=== PATIENT | male | born 1940 | race Caucasian/White ===

== ENCOUNTER 2020-04-10 09:07 | Inpatient (IN) ==
[2020-04-10] MEDS ORDERED: 0.9 % SODIUM CHLORIDE 1,000 ML IV ONE (09:16)
[2020-04-10 10:17] LABS: Basophils # (Auto) 0.01 K/mcL (0.00-0.30); Basophils % (Auto) 0.3 % (0.0-2.0); Eosinophils # (Auto) 0.21 K/mcL (0.00-0.70); Eosinophils % (Auto) 5.8 % (0.0-7.0); Granulocytes % (Auto) 68.8 % (38.0-78.0); Hematocrit 26.8 % (40.1-51.0); Hemoglobin 8.9 g/dL (13.7-17.5); Lymphocytes # (Auto) 0.88 K/mcL (1.50-4.80); Lymphocytes % (Auto) 24.5 % (15.5-49.0); Mean Cell Volume 105.5 fL (80.0-100.0); Mean Corpuscular HGB Conc 33.2 g/dL (31.0-36.0); Mean Platelet Volume 11.4 fL (7.4-10.4); Monocytes # (Auto) 0.02 K/mcL (0.10-0.90); Monocytes % (Auto) 0.6 % (1.0-12.0); Platelet Count 117 K/mcL (140-440); RBC 2.54 M/mcL (4.63-6.08); Red Cell Distribution Width 20.4 % (11.5-14.5); WBC 3.6 K/mcL (4.50-11.00)
[2020-04-10 10:36] LABS: ALT/SGPT 36 U/l (0-40); AST/SGOT 36 U/l (0-37); Albumin 3.4 gm/dL (3.2-5.2); Albumin/Globulin Ratio 0.9 (1.0-2.3); Alkaline Phosphatase 84 U/L (39-117); Blood Urea Nitrogen 94 mg/dl (8-23); Calcium 9.1 mg/dl (8.6-10.4); Carbon Dioxide 20 mmol/L (22-30); Chloride 100 mmol/L (96-108); Globulin 3.7 gm/dL (2.2-3.7); Glomerular Filtration Rate 21; Glucose 137 mg/dL (70-105)
[2020-04-10] MEDS ORDERED: 0.9 % SODIUM CHLORIDE 500 ML IV ONE (10:43)
--- NOTE | 2020-04-10 11:29 | XRay Report ---
HISTORY: Cough and hemoptysis FINDINGS: The lungs are clear. No mass or infiltrate are identified. The heart, mediastinum, cesario and pleura are normal. The aorta is tortuous. IMPRESSION: Normal chest. Interpreted and Authenticated by: Marco A Gorman 04/10/20
--- NOTE | 2020-04-10 11:42 | Emergency Department Note ---
HPI General Chief complaint: Bleeding Other Stated complaint: bleeding from mout Time Seen by Provider: 04/10/20 10:12 Source: patient Mode of arrival: ambulatory Limitations: no limitations History of Present Illness HPI Narrative: This 29-year-old male comes with his , Renetta, to the emergency room describing bleeding in his mouth that is gone off and on for around a week. The corners of his mouth hurts and he thinks this is where the bleeding is coming from. There is been no blood in his stool. His primary care provider saw him yesterday, Dr. Gorman, [facility], and with labs that were done yesterday asked him to come to the emergency room with concern regarding kidney failure and infection. Patient admits to feeling weak and tired. He describes having a poor oral intake of fluids for multiple days. He has had poor food intake these past 3 weeks. He is not specifically nauseated or vomiting or diarrhea. No known prior history of anemia or kidney dysfunction. He has bowel movements daily he says none of which have shown any blood or melena or blackness. He denies fever, chills, sweats. He is not on any blood thinners including no aspirin. Related Data Home Medications Medication Instructions Recorded Confirmed bisoprolol-hydrochlorothiazide 5 - 6.25 tab PO DAILY 04/10/20 04/10/20 lisinopril 20 mg PO DAILY 04/10/20 04/10/20 methotrexate sodium 7.5 mg PO WEEKLY 04/10/20 04/10/20 omeprazole 20 mg PO DAILY 04/10/20 04/10/20 simvastatin 40 mg PO DAILY 04/10/20 04/10/20 Allergies Allergy/AdvReac Type Severity Reaction Status Date / Time No Known Drug Allergies Allergy Verified 04/10/20 09:12 Review of Systems ROS ROS Narrative: Denies chest pain Has had some cough for a number of months. He attributes it to his allergies although in the past has not had cough related to allergies. He feels a little bit short of breath during the day with activity No abdominal pain or nausea No dysuria Does feel lightheaded. His blood pressure medication was changed yesterday. Chart review suggest this was his bisoprolol/HCTZ was cut in half. His blood pr essure was a little low then as well. PFSH Narrative Patient History Narrative: Denies a history of DVT or PE. Medical/Surgical/Family History All Active Problems (Updated 04/10/20 @ 15:26 by Josue Leslie DO) Bleeding from mouth (Acute) Anemia (Acute) Acute renal failure (ARF) (Acute) Leukocytopenia (Acute) Thrombocytopenia (Acute) Macrocytosis (Acute) Hypertension, essential (Acute) Weakness (Acute) Rheumatoid arthritis (Acute) Immunosuppressed status (Acute) Social History Smoking Status: Never smoker Exam Narrative Narrative: Narrative: General Limitations: no limitations General appearance: alert, in no apparent distress, malaise (Moderate.) and nontoxic Head Head: atraumatic and normocephalic Eye Eye: Present EOMI ENT ENT: Present other (There is caked dried blood at the corners of his mouth's and he points of these is tender. Inside the oropharynx there is some dryness and there is scattered bloody remnants caked in multiple areas on the hard and soft palate, gums, tongue areas. He is a mouth breather. On the posterior mandible and maxilla on the right side there is a corral firm bed where the posterior molars would usually be. This is slightly tender to touch with the tongue d epressor. There is no obvious red bleeding anywhere that is identifiable.) Neck Neck: Present trachea midline; Absent lymphadenopathy and thyromegaly Respiratory Respiratory: Present normal lung sounds bilaterally; Absent respiratory distress, wheezes, stridor, accessory muscle use and prolonged expiratory phase Cardiovascular Cardiovascular: Present regular rate and normal rhythm; Absent systolic murmur and diastolic murmur Adbominal Abdominal: Present soft; Absent distention, tenderness, guarding, rebound, rigidity, organomegaly and mass Rectal Rectal: Present heme (-) stool (Only a small residue off of the glove was able to be tested as there was no stool in the anal canal or rectal ampulla.) and normal prostate (Not present.); Absent black stool and hemorrhoids Extremities Extremities: Absent pedal edema, pretibial edema and calf tenderness Neurological Neurological: Present alert and oriented X3 Psychiatric Psychiatric: Present flat affect, serious, polite and pleasant; Absent agitated, anxious and poor eye contact Skin Skin: Present warm and dry Course Vital Signs Vital signs: Vital Signs Temperature 98.4 F 04/10/20 09:08 Pulse Rate 92 H 04/10/20 09:08 Respiratory Rate 18 04/10/20 09:08 Blood Pressure 97/68 04/10/20 09:08 Pulse Oximetry (%) 98 04/10/20 09:08 Temperature 98.4 F 04/10/20 09:08 Pulse Rate 75 04/10/20 14:30 Respiratory Rate 16 04/10/20 14:30 Blood Pressure 111/58 04/10/20 14:30 Pulse Oximetry (%) 99 04/10/20 14:30 MDM MDM Narrative Medical decision making narrative: 10:17 AM - mouth bleeding of uncertain origin. Will do basic labs as well as coags. We will have him rinse to try to reexamine. Because of some chronic cough will do chest x-ray. We will do orthostatic blood pressures. Will obtain old records. 11:41 AM - sinus rhythm on EKG without ACS. 11:43 AM - chest x-ray is normal chest. 12:00 noon estimated - previous chart review from [facility] includes old creatinine of 1.3 on 12/08/2017. White count then was 7.8. Hemoglobin and hematocrit 13.5 and 40.4. Labs from yesterday include sodium 139, potassium 5.6, chloride 101, CO2 24.6, anion gap 18.4, glucose 137, calcium 9.4, BUN 98, creatinine 3.43. Albumin and total protein were 3.8 and 7.6. Liver function tests normal. CBC from yesterday involved a white count of 2.7, hemoglobin 8.8, hematocrit 25.9. MCV is elevated at 104.4, platelet count 116. CRP elevated at 23.9. TSH 1.484. FT4 0.93 which is in the normal range. Chart note includes a 35 pound weight loss over the last year. This is from Dr. Gorman from yesterday. Impression included dysphasia with some abdominal pain . CAT scan of the abdomen was ordered. His methotrexate and meloxicam were discontinued and omeprazole increased to twice daily. His previous methotrexate dose was 2.5 mg with 5 tablets once a week. Patient's blood pressure was low and it was recommended that he discontinue his lisinopril and decrease bisoprolol previous dose to 1/2 tablet daily. His recent dose probably bisoprolol/hydrochlorothiazide 5-6.25. Previous lisinopril was 10 mg once daily. 1:23 PM - repeat hemoglobin comes down to 7.2. This is after 1500 cc of normal saline. It was 8.8. Patient denies any hematochezia or melena. He has daily bowel movements. Type and cross for 2 units ordered. 1:38 PM - I spoke with Dr. 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 He will do some additional follow- up/investigation. He is willing to follow patient in consult. Call out to gege castro. 2:18 PM - I briefly discussed with Dr. Ornelas, hospitalist who requested a consultation with hematology which I requested. Concern regarding chart review that shows dysphagia and with his weight loss and pancytopenia could there be a malignancy. He again recommends he Monck consult. 2:46 PM - I spoke with Dr. Tosin Hernandez, salesperson floor coverings oncologist to believes that his decrease in his H&H is certainly likely due to delusional effect that he is very dry considering his BUN and creatinine etc. Methotrexate certainly could cause pancytopenia. She believes it would be reasonable to monitor and to replace fluids as well as blood at this point in time. A reticulocyte count could be entertained as a means to measure how well his bone marrow is responding and if is responding well could be an indicator or suggestion of acute blood loss. 3:13 PM - I spoke with Dr. Ornelas, again who is agreeable and will be able to admit patient under his services. The CRP from yesterday was mentioned, 23.0, but patient has had rheumatoid arthritis. His lactic acid today was unremarkabl e. He will be admitted and his packed red blood cells will be infused when they arrive. Lab Data Result diagrams: 04/10/20 12:25 04/10/20 09:16 Labs: Lab Results 04/10/20 04/10/20 04/10/20 Range/Units 09:16 09:16 09:16 WBC 3.6 L (4.50-11.00) K/mcL RBC 2.54 L (4.63-6.08) M/mcL Hgb 8.9 L (13.7-17.5) g/dL Hct 26.8 L (40.1-51.0) % MCV 105.5 H (80.0-100.0) fL MCH 35.0 H (26.0-34.0) pg MCHC 33.2 (31.0-36.0) g/dL RDW 20.4 H (11.5-14.5) % Plt Count 117 L (140-440) K/mcL MPV 11.4 H (7.4-10.4) fL Gran % 68.8 (38.0-78.0) % Lymph % (Auto) 24.5 (15.5-49.0) % Luna % (Auto) 0.6 L (1.0-12.0) % Eos % (Auto) 5.8 (0.0-7.0) % Baso % (Auto) 0.3 (0.0-2.0) % Gran # 2.47 (1.80-8.00) K/mcL Lymph # (Auto) 0.88 L (1.50-4.80) K/mcL Luna # (Auto) 0.02 L (0.10-0.90) K/mcL Eos # (Auto) 0.21 (0.00-0.70) K/mcL Baso # (Auto) 0.01 (0.00-0.30) K/mcL Total Counted Seg Neutrophils % (38-78) % Band Neutrophils % (0-10) % Lymphocytes % (15-49) % Eosinophils % (Manual) (0-7) % Platelet Estimate (NORMAL) RBC Morphology (NORMAL) Anisocytosis (NONE SEEN) Macrocytosis (NONE SEEN) Smear Path Review Absolute Retic (0.03-0.11) M/mcL Percent Retic (0.5-1.5) % PT (11.9-14.5) sec INR (0.9-1.1) APTT (20-37) sec VBG Lactic Acid 1.9 (0.5-2.0) mmol/L Sodium 139 (133-145) mmol/L Potassium 4.6 (3.3-5.1) mmol/L Chloride 100 (96-108) mmol/L Carbon Dioxide 20 L (22-30) mmol/L Anion Gap 19.0 H (8-16) BUN 94 H (8-23) mg/dl Creatinine 2.7 H (0.7-1.2) mg/dl GFR Calculation 21 Glucose 137 H (70-105) mg/dL Uric Acid (2.5-8.0) mg/dL Calcium 9.1 (8.6-10.4) mg/dl Phosphorus (2.7-4.5) mg/dL Total Bilirubin 1.0 (0.0-1.0) mg/dL AST 36 (0-37) U/l ALT 36 (0-40) U/l Alkaline Phosphatase 84 (39-117) U/L Troponin T (0-0.03) ng/ml Total Protein 7.1 (5.9-8.4) gm/dL Albumin 3.4 (3.2-5.2) gm/dL Globulin 3.7 (2.2-3.7) gm/dL Albumin/Globulin Ratio 0.9 L (1.0-2.3) 04/10/20 04/10/20 04/10/20 Range/Units 09:16 09:16 09:16 WBC (4.50-11.00) K/mcL RBC (4.63-6.08) M/mcL Hgb (13.7-17.5) g/dL Hct (40.1-51.0) % MCV (80.0-100.0) fL MCH (26.0-34.0) pg MCHC (31.0-36.0) g/dL RDW (11.5-14.5) % Plt Count (140-440) K/mcL MPV (7.4-10.4) fL Gran % (38.0-78.0) % Lymph % (Auto) (15.5-49.0) % Luna % (Auto) (1.0-12.0) % Eos % (Auto) (0.0-7.0) % Baso % (Auto) (0.0-2.0) % Gran # (1.80-8.00) K/mcL Lymph # (Auto) (1.50-4.80) K/mcL Luna # (Auto) (0.10-0.90) K/mcL Eos # (Auto) (0.00-0.70) K/mcL Baso # (Auto) (0.00-0.30) K/mcL Total Counted Seg Neutrophils % (38-78) % Band Neutrophils % (0-10) % Lymphocytes % (15-49) % Eosinophils % (Manual) (0-7) % Platelet Estimate (NORMAL) RBC Morphology (NORMAL) Anisocytosis (NONE SEEN) Macrocytosis (NONE SEEN) Smear Path Review Absolute Retic (0.03-0.11) M/mcL Percent Retic (0.5-1.5) % PT 14.0 (11.9-14.5) sec INR 1.0 (0.9-1.1) APTT 38 H (20-37) sec VBG Lactic Acid (0.5-2.0) mmol/L Sodium (133-145) mmol/L Potassium (3.3-5.1) mmol/L Chloride (96-108) mmol/L Carbon Dioxide (22-30) mmol/L Anion Gap (8-16) BUN (8-23) mg/dl Creatinine (0.7-1.2) mg/dl GFR Calculation Glucose (70-105) mg/dL Uric Acid (2.5-8.0) mg/dL Calcium (8.6-10.4) mg/dl Phosphorus (2.7-4.5) mg/dL Total Bilirubin (0.0-1.0) mg/dL AST (0-37) U/l ALT (0-40) U/l Alkaline Phosphatase (39-117) U/L Troponin T < 0.01 (0-0.03) ng/ml Total Protein (5.9-8.4) gm/dL Albumin (3.2-5.2) gm/dL Globulin (2.2-3.7) gm/dL Albumin/Globulin Ratio (1.0-2.3) 04/10/20 04/10/20 04/10/20 Range/Units 09:16 12:25 12:25 WBC 1.9 L (4.50-11.00) K/mcL RBC 2.04 L (4.63-6.08) M/mcL Hgb 7.2 L (13.7-17.5) g/dL Hct 21.6 L (40.1-51.0) % MCV 105.9 H (80.0-100.0) fL MCH 35.3 H (26.0-34.0) pg MCHC 33.3 (31.0-36.0) g/dL RDW 20.4 H (11.5-14.5) % Plt Count 81 L (140-440) K/mcL MPV 11.1 H (7.4-10.4) fL Gran % 82.8 H (38.0-78.0) % Lymph % (Auto) 14.1 L (15.5-49.0) % Luna % (Auto) 0.5 L (1.0-12.0) % Eos % (Auto) 2.6 (0.0-7.0) % Baso % (Auto) 0 (0.0-2.0) % Gran # 1.58 L (1.80-8.00) K/mcL Lymph # (Auto) 0.27 L (1.50-4.80) K/mcL Luna # (Auto) 0.01 L (0.10-0.90) K/mcL Eos # (Auto) 0.05 (0.00-0.70) K/mcL Baso # (Auto) 0 (0.00-0.30) K/mcL Total Counted Seg Neutrophils % (38-78) % Band Neutrophils % (0-10) % Lymphocytes % (15-49) % Eosinophils % (Manual) (0-7) % Platelet Estimate (NORMAL) RBC Morphology (NORMAL) Anisocytosis (NONE SEEN) Macrocytosis (NONE SEEN) Smear Path Review Absolute Retic (0.03-0.11) M/mcL Percent Retic (0.5-1.5) % PT (11.9-14.5) sec INR (0.9-1.1) APTT (20-37) sec VBG Lactic Acid (0.5-2.0) mmol/L Sodium (133-145) mmol/L Potassium (3.3-5.1) mmol/L Chloride (96-108) mmol/L Carbon Dioxide (22-30) mmol/L Anion Gap (8-16) BUN (8-23) mg/dl Creatinine (0.7-1.2) mg/dl GFR Calculation Glucose (70-105) mg/dL Uric Acid 10.5 H (2.5-8.0) mg/dL Calcium (8.6-10.4) mg/dl Phosphorus 4.5 (2.7-4.5) mg/dL Total Bilirubin (0.0-1.0) mg/dL AST (0-37) U/l ALT (0-40) U/l Alkaline Phosphatase (39-117) U/L Troponin T (0-0.03) ng/ml Total Protein (5.9-8.4) gm/dL Albumin (3.2-5.2) gm/dL Globulin (2.2-3.7) gm/dL Albumin/Globulin Ratio (1.0-2.3) 04/10/20 Range/Units 12:25 WBC (4.50-11.00) K/mcL RBC (4.63-6.08) M/mcL Hgb (13.7-17.5) g/dL Hct (40.1-51.0) % MCV (80.0-100.0) fL MCH (26.0-34.0) pg MCHC (31.0-36.0) g/dL RDW (11.5-14.5) % Plt Count (140-440) K/mcL MPV (7.4-10.4) fL Gran % (38.0-78.0) % Lymph % (Auto) (15.5-49.0) % Luna % (Auto) (1.0-12.0) % Eos % (Auto) (0.0-7.0) % Baso % (Auto) (0.0-2.0) % Gran # (1.80-8.00) K/mcL Lymph # (Auto) (1.50-4.80) K/mcL Luna # (Auto) (0.10-0.90) K/mcL Eos # (Auto) (0.00-0.70) K/mcL Baso # (Auto) (0.00-0.30) K/mcL Total Counted 100 Seg Neutrophils % 68 (38-78) % Band Neutrophils % 2 (0-10) % Lymphocytes % 28 (15-49) % Eosinophils % (Manual) 2 (0-7) % Platelet Estimate Decreased A (NORMAL) RBC Morphology Abnorm A (NORMAL) Anisocytosis 2+ A (NONE SEEN) Macrocytosis 1+ A (NONE SEEN) Smear Path Review Absolute Retic 0.01 L (0.03-0.11) M/mcL Percent Retic 0.36 L (0.5-1.5) % PT (11.9-14.5) sec INR (0.9-1.1) APTT (20-37) sec VBG Lactic Acid (0.5-2.0) mmol/L Sodium (133-145) mmol/L Potassium (3.3-5.1) mmol/L Chloride (96-108) mmol/L Carbon Dioxide (22-30) mmol/L Anion Gap (8-16) BUN (8-23) mg/dl Creatinine (0.7-1.2) mg/dl GFR Calculation Glucose (70-105) mg/dL Uric Acid (2.5-8.0) mg/dL Calcium (8.6-10.4) mg/dl Phosphorus (2.7-4.5) mg/dL Total Bilirubin (0.0-1.0) mg/dL AST (0-37) U/l ALT (0-40) U/l Alkaline Phosphatase (39-117) U/L Troponin T (0-0.03) ng/ml Total Protein (5.9-8.4) gm/dL Albumin (3.2-5.2) gm/dL Globulin (2.2-3.7) gm/dL Albumin/Globulin Ratio (1.0-2.3) Discharge Plan Patient/Caregiver Discharge Instructions Pt seen by DISH UP PERSON/PA only: No Clinical Impression: Bleeding from mouth, Thrombocytopenia, Macrocytosis, Hypertension, essential, Weakness, Immunosuppressed status Anemia Qualifiers: Anemia type: unspecified type Qualified Code(s): D64.9 - Anemia, unspecified Acute renal failure (ARF) Qualifiers: Acute renal failure type: unspecified Qualified Code(s): N17.9 - Acute kidney failure, unspecified Leukocytopenia Qualifiers: Leukopenia type: unspecified Qualified Code(s): D72.819 - Decreased white blood cell count, unspecified Rheumatoid arthritis Qualifiers: Rheumatoid arthritis location: unspecified site Rheumatoid factor presence: unspecified presence Qualified Code(s): M06.9 - Rheumatoid arthritis, unspecified Patient Disposition: Xfer As Inpt ([facility]) Follow up with: Saturnino Dugan MD [Primary Care Provider] - Prescriptions: No Action lisinopril 20 mg tablet 20 mg PO DAILY RF: 0 bisoprolol-hydrochlorothiazide 5-6.25 mg tablet 5 - 6.25 tab PO DAILY RF: 0 simvastatin 40 mg tablet 40 mg PO DAILY RF: 0 methotrexate sodium 2.5 mg tablet 7.5 mg PO WEEKLY RF: 0 omeprazole 20 mg capsule,delayed release(DR/EC) 20 mg PO DAILY RF: 0
[2020-04-10 13:11] LABS: Basophils # (Auto) 0 K/mcL (0.00-0.30); Basophils % (Auto) 0 % (0.0-2.0); Eosinophils # (Auto) 0.05 K/mcL (0.00-0.70); Eosinophils % (Auto) 2.6 % (0.0-7.0); Granulocytes % (Auto) 82.8 % (38.0-78.0); Hematocrit 21.6 % (40.1-51.0); Hemoglobin 7.2 g/dL (13.7-17.5); Lymphocytes # (Auto) 0.27 K/mcL (1.50-4.80); Lymphocytes % (Auto) 14.1 % (15.5-49.0); Mean Cell Volume 105.9 fL (80.0-100.0); Mean Corpuscular HGB Conc 33.3 g/dL (31.0-36.0); Mean Platelet Volume 11.1 fL (7.4-10.4); Monocytes # (Auto) 0.01 K/mcL (0.10-0.90); Monocytes % (Auto) 0.5 % (1.0-12.0); Platelet Count 81 K/mcL (140-440); RBC 2.04 M/mcL (4.63-6.08); Red Cell Distribution Width 20.4 % (11.5-14.5); WBC 1.9 K/mcL (4.50-11.00)
[2020-04-10] MEDS ORDERED: 0.9 % SODIUM CHLORIDE 250 ML IV SCH ×2 (13:30→15:30)
[2020-04-10 14:46] LABS: Retic Absolute 0.01 M/mcL (0.03-0.11)
[2020-04-10 14:51] LABS: Anisocytosis 2+ (NONE SEEN); Band Neutrophils % 2 % (0-10); Eosinophils % (Manual) 2 % (0-7); Lymphocytes % 28 % (15-49); Macrocytosis 1+ (NONE SEEN); Platelet Estimate DECREASED (NORMAL); RBC Morphology ABNORM (NORMAL); Segmented Neutrophils % 68 % (38-78)
[2020-04-10 14:51] LABS: Phosphorous 4.5 mg/dL (2.7-4.5); Uric Acid 10.5 mg/dL (2.5-8.0)
--- NOTE | 2020-04-10 15:53 | Internal Med History&Physical ---
HPI History of Present Illness Patient information: Note initiated : 04/10/20 at 3:43 pm Service Date, if different from initiated Date: [] Patient: Darren Neal a 79 y/o M admitted on for Bleeding From Mouth. Chief Complaint: [] History of present illness: Mr. Neal is a 79 year old M Does the ED at the direction of his PCP after abnormal labs returned. Patient has history of remote arthritis hypertension chronic kidney disease stage III. Patient was started on methotrexate about 6 months ago. He was recently seen by his PCP and his blood pressure medications and diuretics were held as well as methotrexate and NSAIDs. Patient states about past 6 months he is not been feeling well but especially the past 3 to 4 weeks he has had poor appetite and poor sleep. Says he does have some problem with his dentures rubbing against his gums and did cause some bleeding lately, he says the first time this happened was about a year ago. His says he does not drink enough fluid and she has been trying encourage him all summer to drink more fluid. He states he urinates okay. He denies any fevers chills chest pain abdominal pain. Does have occasional diarrhea which is normal for him. He denies dysphagia. In the ED he is shown to be pancytopenic as well as have an acute on chronic kidney injury. He also has some out patient laboratory done recently which showed a normal TSH and T4 as well as a normal B12 and folate level. TIBC was low and ferritin was high. Case was also cussed with Dr. Bowling, neurologist. And case was also discussed with Dr. Aguilar, ballistics expert forensic, who felt likely culprit was methotrexate. He was Hemoccult negative in the ED and does not report any GI bleeding. Review of Systems: Positive as above. Denies headache/fever/chills/nausea/vomiting/chest or abdominal pain/cough/dyspnea. Remaining 10 point review of system reviewed negative PFSH PFSH Social History (Updated 04/10/20 @ 15:48 by Lew Ornelas DO) smoking status: Never smoker additional history: Past medical history: Rheumatoid arthritis follows with Dr. Gorman not seeing a eyelet maker at this time Hypertension/hyperlipidemia Chronic kidney disease stage III Past surgical history: Prostatectomy and bilateral total knee arthroplasty Family: Father had hypertension Social history: Patient denies tobacco he has a drink per each night alcohol Denies using a walker or cane Lives at home with his MEDS/ALLERGIES Home Medications and Allergies Home Medications Medication Instructions Recorded Confirmed Type bisoprolol-hydrochlorothiazide 5 - 6.25 tab PO DAILY 04/10/20 04/10/20 History lisinopril 20 mg PO DAILY 04/10/20 04/10/20 History methotrexate sodium 7.5 mg PO WEEKLY 04/10/20 04/10/20 History omeprazole 20 mg PO DAILY 04/10/20 04/10/20 History simvastatin 40 mg PO DAILY 04/10/20 04/10/20 History Allergies Allergy/AdvReac Type Severity Reaction Status Date / Time No Known Drug Allergies Allergy Verified 04/10/20 09:12 EXAM Constitutional Vitals: Temp Pulse Resp BP Pulse Ox 98.4 F 88 19 118/64 99 04/10/20 09:08 04/10/20 15:31 04/10/20 15:31 04/10/20 15:31 04/10/20 15:31 Exam: General: Alert, Awake, No acute Distress Eyes/N/T: EOMI, PERRL, dry MM Head/Neck: neck supple, normocephalic atraumatic CV: RRR, No murmurs, normal s1/s2 Pulm: Clear b/l, no wheezing/rhonchi/rales Abd: soft, nontender, +BS x4 Ext: no clubbing/cyanosis/edema Neuro: Alert, no focal deficits, moves all extremities, CN 2-12 grossly intact, symmetrical strength b/l upper/lower, sensations intact b/l upper/lower Skin: warm/dry DATA Data Completed and Pending Labs on day of discharge: Labs from last 24 hours 04/10/20 04/10/20 04/10/20 12:25 12:25 12:25 WBC 1.9 L RBC 2.04 L Hgb 7.2 L Hct 21.6 L MCV 105.9 H MCH 35.3 H MCHC 33.3 RDW 20.4 H Plt Count 81 L MPV 11.1 H Gran % 82.8 H Lymph % (Auto) 14.1 L Knott % (Auto) 0.5 L Eos % (Auto) 2.6 Baso % (Auto) 0 Gran # 1.58 L Lymph # (Auto) 0.27 L Knott # (Auto) 0.01 L Eos # (Auto) 0.05 Baso # (Auto) 0 Total Counted 100 Seg Neutrophils % 68 Band Neutrophils % 2 Lymphocytes % 28 Eosinophils % (Manual) 2 Platelet Estimate Decreased A RBC Morphology Abnorm A Anisocytosis 2+ A Macrocytosis 1+ A Smear Path Review Absolute Retic 0.01 L Percent Retic 0.36 L PT INR APTT VBG Lactic Acid Sodium Potassium Chloride Carbon Dioxide Anion Gap BUN Creatinine GFR Calculation Glucose Uric Acid Calcium Phosphorus Total Bilirubin AST ALT Alkaline Phosphatase Troponin T Total Protein Albumin Globulin Albumin/Globulin Ratio 04/10/20 04/10/20 04/10/20 09:16 09:16 09:16 WBC RBC Hgb Hct MCV MCH MCHC RDW Plt Count MPV Gran % Lymph % (Auto) Knott % (Auto) Eos % (Auto) Baso % (Auto) Gran # Lymph # (Auto) Knott # (Auto) Eos # (Auto) Baso # (Auto) Total Counted Seg Neutrophils % Band Neutrophils % Lymphocytes % Eosinophils % (Manual) Platelet Estimate RBC Morphology Anisocytosis Macrocytosis Smear Path Review Absolute Retic Percent Retic PT INR APTT 38 H VBG Lactic Acid Sodium Potassium Chloride Carbon Dioxide Anion Gap BUN Creatinine GFR Calculation Glucose Uric Acid 10.5 H Calcium Phosphorus 4.5 Total Bilirubin AST ALT Alkaline Phosphatase Troponin T < 0.01 Total Protein Albumin Globulin Albumin/Globulin Ratio 04/10/20 04/10/20 04/10/20 09:16 09:16 09:16 WBC RBC Hgb Hct MCV MCH MCHC RDW Plt Count MPV Gran % Lymph % (Auto) Knott % (Auto) Eos % (Auto) Baso % (Auto) Gran # Lymph # (Auto) Knott # (Auto) Eos # (Auto) Baso # (Auto) Total Counted Seg Neutrophils % Band Neutrophils % Lymphocytes % Eosinophils % (Manual) Platelet Estimate RBC Morphology Anisocytosis Macrocytosis Smear Path Review Absolute Retic Percent Retic PT 14.0 INR 1.0 APTT VBG Lactic Acid 1.9 Sodium 139 Potassium 4.6 Chloride 100 Carbon Dioxide 20 L Anion Gap 19.0 H BUN 94 H Creatinine 2.7 H GFR Calculation 21 Glucose 137 H Uric Acid Calcium 9.1 Phosphorus Total Bilirubin 1.0 AST 36 ALT 36 Alkaline Phosphatase 84 Troponin T Total Protein 7.1 Albumin 3.4 Globulin 3.7 Albumin/Globulin Ratio 0.9 L 04/10/20 09:16 WBC 3.6 L RBC 2.54 L Hgb 8.9 L Hct 26.8 L MCV 105.5 H MCH 35.0 H MCHC 33.2 RDW 20.4 H Plt Count 117 L MPV 11.4 H Gran % 68.8 Lymph % (Auto) 24.5 Knott % (Auto) 0.6 L Eos % (Auto) 5.8 Baso % (Auto) 0.3 Gran # 2.47 Lymph # (Auto) 0.88 L Knott # (Auto) 0.02 L Eos # (Auto) 0.21 Baso # (Auto) 0.01 Total Counted Seg Neutrophils % Band Neutrophils % Lymphocytes % Eosinophils % (Manual) Platelet Estimate RBC Morphology Anisocytosis Macrocytosis Smear Path Review Absolute Retic Percent Retic PT INR APTT VBG Lactic Acid Sodium Potassium Chloride Carbon Dioxide Anion Gap BUN Creatinine GFR Calculation Glucose Uric Acid Calcium Phosphorus Total Bilirubin AST ALT Alkaline Phosphatase Troponin T Total Protein Albumin Globulin Albumin/Globulin Ratio A/P Narrative A/P Narrative: A: *YURIY on CKD III: 2/2 poor oral intake/NSAIDs/BONNY inhibitor/HCTZ *panCytopenia: Likely 2/2 methotrexate -Macrocytic anemia with normal B12 and folate, 2/2 likely methotrexate -Thrombocytopenia 79 -Mild neutropenia -No blasts or immature cells on the peripheral smear *Rheumatoid arthritis: Started on the methotrexate 6 months ago, now DC'd *HTN: Blood pressure medications recently stopped outpatient given decreased blood pressure readings *HLD: On statin *Generalized weakness: P: -IVF -PRBC transfusion -Nephro consult -monitor UOP -cont BB at lower dose -d/c NSAIDS/ACEI/MTX/HCTZ -Follow-up with PCP/eyelet maker for alternative rheumatologic's -pt/ot -ppx: SCD, may start chemical in AM depending on CBC DNR Time Spent With Patient Time: Total time spent is greater than 50% in coordination of care (as documented) at patient's floor/unit and/or counseling patient:
[2020-04-10] MEDS ORDERED: ACETAMINOPHEN 325 MG TABLET PO PRN (16:49)
[2020-04-10] MEDS ORDERED: IPRATROPIUM/ALBUTEROL 3 ML AMPUL.NEB NEB PRN (16:49)
[2020-04-10] MEDS ORDERED: POLYETHYLENE GLYCOL 3350 17 GM PACKET PO PRN (16:49)
[2020-04-10] MEDS ORDERED: MAGNESIUM SULFATE 2 GM/50 ML BAG IV PRN (16:49)
[2020-04-10] MEDS ORDERED: POTASSIUM CHLORIDE 20 MEQ TABLET PO PRN ×2 (16:49)
[2020-04-10] MEDS ORDERED: ONDANSETRON 4 MG/2 ML VIAL IV PRN (16:49)
[2020-04-10] MEDS ORDERED: POTASSIUM CHLORIDE 40 MEQ in DEXTROSE 5% IN WATER 500 ML IV PRN (16:49)
--- NOTE | 2020-04-10 17:00 | Nephrology Consult Note ---
HPI Data of Consult Primary Care Provider: Saturnino Dugan Consult Narrative Patient Information: Note initiated : 04/10/20 at 4:59 pm Service Date, if different from initiated Date: [] Patient: Darren Neal 79 y/o M admitted on 04/10/20 for Bleeding From Mouth. Chief Complaint: [ARF] Patient is a 89-year-old gentleman with history of hypertension (primary/thiazide) and lisinopril as well as some sort of inflammatory arthritis on methotrexate 7.5 mg a week who presents with. General oropharyngeal bleeding and initial ED lab testing was found to have pancytopenia as well as noted elevation in his BUN and creatinine. Laboratory Tests 04/10/20 04/10/20 04/10/20 09:16 09:16 09:16 WBC 3.6 L Hgb 8.9 L Hct 26.8 L MCV 105.5 H Plt Count 117 L Eos % (Auto) 5.8 VBG Lactic Acid 1.9 Sodium 139 Potassium 4.6 Chloride 100 Carbon Dioxide 20 L Anion Gap 19.0 H BUN 94 H Creatinine 2.7 H GFR Calculation 21 Glucose 137 H Uric Acid Calcium 9.1 Phosphorus AST 36 ALT 36 Alkaline Phosphatase 84 Albumin 3.4 Globulin 3.7 04/10/20 04/10/20 09:16 12:25 WBC 1.9 L Hgb Hct MCV Plt Count 81 L Eos % (Auto) VBG Lactic Acid Sodium Potassium Chloride Carbon Dioxide Anion Gap BUN Creatinine GFR Calculation Glucose Uric Acid 10.5 H Calcium Phosphorus 4.5 AST ALT Alkaline Phosphatase Albumin Globulin I'm told his baseline creatinine in November 2017 was 1.3 mg/dl. There is no urinalysis. CXR is negative. Poor po intake. In my mind, prerenal azotemia due to thiazide/ACEi and dehydration is a strong possibility, followed by a crystalopathy from MTX toxicity (unlikely at this dose), and acute GN (pauci immune given age and rheumatoid related if that's his primary reason for MTx)) of a myeloma or light chain process given his age and pancytopenia. Diagnostic studies will be ordered. More thoughts follow results of lab testing Stop HXTZ and Lisinopril. Continue hydration. cc:: CC: Lew Ornelas Constitutional Constitutional: Present as per HPI, fatigue, lethargy and weakness EENT Eyes: Present as per HPI Nose, mouth and throat: Present dry mouth and mouth lesions; Absent epistaxis Cardiovascular Cardiovascular: Present as per HPI and rapid heart rate Respiratory Respiratory: Present dyspnea on exertion Gastrointestinal Gastrointestinal: Absent coffee ground emesis, hematemesis, hematochezia and melena Genitourinary Additional comments: No hematuria or foamy urine Musculoskeletal Musculoskeletal: Present arthralgias and atrophy Integumentary Integumentary: Present unusual bruising Neurological Neurological: Present confusion and memory loss Psychiatric Psychiatric: Present as per HPI and abnormal sleep pattern Endocrine Endocrine: Present fatigue Hematologic/Lymphatic Hematologic/Lymphatic: Present easy bleeding and easy bruising Allergic/Immunologic Allergic/Immunologic: Present as per HPI PFSH PFSH Social History (Updated 04/10/20 @ 15:48 by Lew Ornelas DO) smoking status: Never smoker additional history: Past medical history: Rheumatoid arthritis follows with Dr. Gorman not seeing a operations administrator at this time Hypertension/hyperlipidemia Chronic kidney disease stage III Past surgical history: Prostatectomy and bilateral total knee arthroplasty Family: Father had hypertension Social history: Patient denies tobacco he has a drink per each night alcohol Denies using a walker or cane Lives at home with his MEDS/ALLERGIES Home Medications and Allergies Home Medications Medication Instructions Recorded Confirmed Type bisoprolol-hydrochlorothiazide 5 - 6.25 tab PO DAILY 04/10/20 04/10/20 History lisinopril 20 mg PO DAILY 04/10/20 04/10/20 History methotrexate sodium 7.5 mg PO WEEKLY 04/10/20 04/10/20 History omeprazole 20 mg PO DAILY 04/10/20 04/10/20 History simvastatin 40 mg PO DAILY 04/10/20 04/10/20 History Allergies Allergy/AdvReac Type Severity Reaction Status Date / Time No Known Drug Allergies Allergy Verified 04/10/20 09:12 Physical Examination Vital Signs Vital signs: Temp Pulse Resp BP Pulse Ox 36.9 C 76 19 115/61 99 04/10/20 09:08 04/10/20 16:01 04/10/20 15:31 04/10/20 16:01 04/10/20 16:01 General Appearance General appearance: appears started age and frail EENT EENT: ATNC, PERRL, mucous membranes dry, vision intact and hearing diminished Neck Neck: no JVD, no carotid bruit and supple Respiratory Respiratory: kyphosis and clear Cardiovascular Cardiology: mid-systolic murmur, no rub, no gallops, no edema, regular rhythm, normal S1 and normal S2 Gastrointestinal Gastrointestinal: normoactive bowel sounds, no tenderness, no guarding and no masses Integumentary Integumentary: no rash and warm and dry Neurologic Neurologic: no focal deficit, no asterixis and CN 3-12 intact Musculoskeletal Musculoskeletal: no deformities and no clubbing Psychiatric Psychiatric: mood/affect appropriate Results Lab Results Result Diagrams: 04/10/20 12:25 04/10/20 09:16 Lab results: Most recent lab results Calcium 9.1 mg/dl (8.6-10.4) 04/10/20 09:16 Phosphorus 4.5 mg/dL (2.7-4.5) 04/10/20 09:16 A/P Assessment and plan (1) Acute renal failure (ARF): Status: Acute Comment: Baseline SCr 1.3 in 2018 Qualifiers: Acute renal failure type: unspecified Qualified Code(s): N17.9 - Acute kidney failure, unspecified (2) Acquired pancytopenia: Status: Acute Comment: Suspect MTX induced and folate deficient Narrative A/P Narrative: 1. Given the high protein/creatinine ratio, I suspect GI bleeding (high protein meal) and ACEi leading to extreme pre-renal condition. FeNa U/A Protein/Creatinine ratio (urine) Stop lisinopril Volume expand with pRBCs +/1 crystaloid Serial RFP Age directed labs base on possibility of myeloma or pauci immune GN 2. Pancytopenia in a patient on MTX Likely poor folate intake (diet and/or lack of replacement) MCV is c/w this etiology Start replacing folate Could be myelodysplastic Time Spent With Patient Time: Total time spent is greater than 50% in coordination of care (as documented) at patient's floor/unit and/or counseling patient:
[2020-04-10 18:30] LABS: Retic Absolute 0.01 M/mcL (0.03-0.11)
[2020-04-10 18:50] LABS: Iron 73 mcg/dl (61-157); Lactate Dehydrogenase 212 U/L (94-250); TIBC Calculation 170 ug/dl (228-428); Transferrin % Saturation 42 % (20-50)
[2020-04-10] MEDS: FOLIC ACID 1 MG TABLET PO SCH (20:14)
[2020-04-10 22:31] LABS: Appearance,Urine HAZY; Bilirubin,Urine NEG (NEG); Color,Urine YELLOW; Culture Indicated,Urine NO; Glucose,Urine (UA) 50 mg/dL (NEG); Ketones,Urine NEG (NEG); Leukocyte Esterase,Urine NEG /uL (NEG); Nitrate,Urine NEG (NEG); Protein,Urine NEG (NEG); Specific Gravity,Urine 1.016 (1.000-1.035); Urine Blood NEG mg/dL (<0.03); Urobilinogen,Urine NEG (NEG)
[2020-04-10 22:48] LABS: Sodium, Urine Random 73 mmol/L
[2020-04-10 22:54] LABS: Creatinine, Spot Urine 65.6 mg/dl; Pro:Crea Ratio 0.21 mg:mg
[2020-04-10] MEDS: 0.9 % SODIUM CHLORIDE 10 ML SYRINGE IV SCH (23:53)
[2020-04-11] MEDS: 0.9 % SODIUM CHLORIDE 10 ML SYRINGE IV SCH ×3 (05:38→21:57)
--- NOTE | 2020-04-11 07:14 | Internal Med Progress Note ---
SUBJECTIVE Subjective Patient information: Note initiated : 04/11/20 at 7:10 am Service Date, if different from initiated Date: [] Patient: Darren Neal 79 y/o M admitted on 04/10/20 for Bleeding From Mouth. Chief Complaint: [] Interval history: Mr. Neal is a 79 year old M Does the ED at the direction of his PCP after abnormal labs returned. Patient has history of remote arthritis hypertension chronic kidney disease stage III. Patient was started on methotrexate about 6 months ago. He was recently seen by his PCP and his blood pressure medications and diuretics were held as well as methotrexate and NSAIDs. Patient states about past 6 months he is not been feeling well but especially the past 3 to 4 weeks he has had poor appetite and poor sleep. Says he does have some problem with his dentures rubbing against his gums and did cause some bleeding lately, he says the first time this happened was about a year ago. His says he does not drink enough fluid and she has been trying encourage him all summer to drink more fluid. He states he urinates okay. He denies any fevers chills chest pain abdominal pain. Does have occasional diarrhea which is normal for him. He denies dysphagia. In the ED he is shown to be pancytopenic as well as have an acute on chronic kidney injury. He also has some out patient laboratory done recently which showed a normal TSH and T4 as well as a normal B12 and folate level. TIBC was low and ferritin was high. Case was also cussed with Dr. Bowling, neurologist. And case was also discussed with Dr. Aguilar, salesperson automobiles, who felt likely culprit was methotrexate. He was Hemoccult negative in the ED and does not report any GI bleeding. 04/11 For sleep but otherwise no new complaints. No overnight events. Received several units of blood yesterday with good response. White blood cell count s lightly improved. Platelets mildly decreased. Red blood cells slightly increased. Creatinine decreased. Constitutional Vitals: Vital Signs Temp Pulse Resp BP Pulse Ox 98.6 F 88 22 127/69 97 04/11/20 03:27 04/11/20 03:27 04/11/20 03:27 04/11/20 03:27 04/11/20 03:27 Period Temp Pulse Resp BP Sys/Gomez Pulse Ox Last 24 Hr 97.8 F-100.3 F 71-94 14-22 94-138/45-78 93-100 Intake and Output 04/10/20 04/11/20 04/11/20 21:59 05:59 13:59 Intake Total 325 575 Output Total 450 Balance 325 125 Weight 73.618 kg Intake & Output: Intake & Output 04/10/20 04/11/20 04/11/20 21:59 05:59 13:59 Intake Total 325 575 Output Total 450 Balance 325 125 Weight 73.618 kg Intake: Oral 250 Blood Product 325 325 Output: Void Amount 450 Other: # Voids 1 Exam: General: Alert, Awake, No acute Distress Eyes/N/T: EOMI, Head/Neck: neck supple, CV: RRR, No murmurs, Pulm: Clear b/l, no wheezing/rhonchi/rales Abd: soft, nontender, +BS x4 Ext: no clubbing/cyanosis/edema Neuro: Alert, no focal deficits, moves all extremities, Skin: warm/dry OBJ DATA Labs CBC & Chem 7: 04/11/20 05:32 04/11/20 05:32 Labs: Abnormal Lab Results 04/10/20 04/10/20 04/10/20 20:18 20:18 17:47 WBC RBC Hgb Hct MCV MCH RDW Plt Count MPV Gran % Lymph % (Auto) [place] % (Auto) Gran # Lymph # (Auto) [place] # (Auto) Platelet Estimate RBC Morphology Anisocytosis Macrocytosis Absolute Retic Percent Retic APTT Carbon Dioxide Anion Gap BUN Creatinine Glucose Uric Acid TIBC 170 L Unsat Iron Binding 97 L Albumin/Globulin Ratio Urine Glucose (UA) 50 A U [place] Prot/Creat Ratio 0.21 H 04/10/20 04/10/20 04/10/20 17:47 12:25 12:25 WBC 1.9 L RBC 2.04 L Hgb 7.2 L Hct 21.6 L MCV 105.9 H MCH 35.3 H RDW 20.4 H Plt Count 81 L MPV 11.1 H Gran % 82.8 H Lymph % (Auto) 14.1 L [place] % (Auto) 0.5 L Gran # 1.58 L Lymph # (Auto) 0.27 L [place] # (Auto) 0.01 L Platelet Estimate Decreased A RBC Morphology Abnorm A Anisocytosis 2+ A Macrocytosis 1+ A Absolute Retic 0.01 L 0.01 L Percent Retic 0.36 L APTT Carbon Dioxide Anion Gap BUN Creatinine Glucose Uric Acid TIBC Unsat Iron Binding Albumin/Globulin Ratio Urine Glucose (UA) U [place] Prot/Creat Ratio 04/10/20 04/10/20 04/10/20 09:16 09:16 09:16 WBC RBC Hgb Hct MCV MCH RDW Plt Count MPV Gran % Lymph % (Auto) [place] % (Auto) Gran # Lymph # (Auto) [place] # (Auto) Platelet Estimate RBC Morphology Anisocytosis Macrocytosis Absolute Retic Percent Retic APTT 38 H Carbon Dioxide 20 L Anion Gap 19.0 H BUN 94 H Creatinine 2.7 H Glucose 137 H Uric Acid 10.5 H TIBC Unsat Iron Binding Albumin/Globulin Ratio 0.9 L Urine Glucose (UA) U [place] Prot/Creat Ratio 04/10/20 09:16 WBC 3.6 L RBC 2.54 L Hgb 8.9 L Hct 26.8 L MCV 105.5 H MCH 35.0 H RDW 20.4 H Plt Count 117 L MPV 11.4 H Gran % Lymph % (Auto) [place] % (Auto) 0.6 L Gran # Lymph # (Auto) 0.88 L [place] # (Auto) 0.02 L Platelet Estimate RBC Morphology Anisocytosis Macrocytosis Absolute Retic Percent Retic APTT Carbon Dioxide Anion Gap BUN Creatinine Glucose Uric Acid TIBC Unsat Iron Binding Albumin/Globulin Ratio Urine Glucose (UA) U [place] Prot/Creat Ratio Meds: Medications Acetaminophen (Tylenol) 650 mg PO Q6HP PRN PRN Reason: PAIN/FEVER > 101 Last Admin: 04/10/20 23:54 Dose: 650 mg Documented by: Albuterol/Ipratropium (Duoneb) 3 ml NEB Q4HP PRN PRN Reason: Shortness Of Breath Bisoprolol Fumarate (Zebeta) 2.5 mg PO DAILY [facility] Folic Acid (Folic Acid) 4 mg PO DAILY [facility] Last Admin: 04/10/20 20:14 Dose: 4 mg Documented by: Potassium Chloride 40 meq/ (Dextrose) 520 mls @ 130 mls/hr IV UD PRN PRN Reason: Potassium < 3 Magnesium Sulfate (Magnesium Sulfate) 2 gm in 50 mls @ 50 mls/hr IV UD PRN PRN Reason: Magnesium </= 1.6 Omeprazole (Prilosec) 20 mg PO DAILY [facility] Ondansetron HCl (Zofran) 4 mg IV Q4HP PRN PRN Reason: Nausea And Vomiting Polyethylene Glycol (Miralax) 17 gm PO DAILYP PRN PRN Reason: Constipation Potassium Chloride (Kdur) 40 meq PO UD PRN PRN Reason: Potssium is 3-3.5 Potassium Chloride (Kdur) 40 meq PO UD PRN PRN Reason: Potassium < 3 Sodium Chloride (Saline Flush) 10 ml IV Q8 [facility] Last Admin: 04/11/20 05:38 Dose: 10 ml Documented by: A/P Narrative A/P Narrative: A: *YURIY on CKD III: 2/2 poor oral intake/NSAIDs/BONNY inhibitor/HCTZ -improving *pancytopenia: Likely 2/2 methotrexate -Macrocytic anemia with normal B12 and folate, 2/2 likely methotrexate, s/p 2PRBC (04/10) -Thrombocytopenia 79 -Mild neutropenia -No blasts or immature cells on the peripheral smear *Rheumatoid Arthritis: Started on the methotrexate 6 months ago, now DC'd *HTN: Blood pressure medications recently stopped outpatient given decreased blood pressure readings *HLD: On statin *Generalized weakness: P: - -Nephro following -monitor UOP -cont home BB -d/c NSAIDS/ACEI/MTX/HCTZ -Follow-up with PCP/sales data analyst for alternative rheumatologic's -pt/ot -ppx: SCD, may start chemical in AM depending on CBC DNR Time Spent With Patient Time: Total time spent is greater than 50% in coordination of care (as documented) at patient's floor/unit and/or counseling patient: QUALITY VTE Deep Vein Thrombosis/Pulmonary Embolism Present on Admission: No
[2020-04-11 07:35] LABS: Total Protein PEP 5.8 gm/dL (5.9-8.4)
[2020-04-11 07:38] LABS: Hematocrit 27.1 % (40.1-51.0); Hemoglobin 9.2 g/dL (13.7-17.5); Mean Cell Volume 101.9 fL (80.0-100.0); Mean Corpuscular HGB Conc 33.9 g/dL (31.0-36.0); Mean Platelet Volume 11.3 fL (7.4-10.4); Platelet Count 69 K/mcL (140-440); RBC 2.66 M/mcL (4.63-6.08); Red Cell Distribution Width 20.6 % (11.5-14.5); WBC 2.1 K/mcL (4.50-11.00)
[2020-04-11 07:42] LABS: ALT/SGPT 71 U/l (0-40); AST/SGOT 81 U/l (0-37); Albumin 2.8 gm/dL (3.2-5.2); Albumin/Globulin Ratio 0.8 (1.0-2.3); Alkaline Phosphatase 94 U/L (39-117); Bilirubin,Direct 0.6 mg/dL (0.0-0.3); Bilirubin,Total 2.4 mg/dL (0.0-1.0); Blood Urea Nitrogen 63 mg/dl (8-23); Calcium 8.5 mg/dl (8.6-10.4); Carbon Dioxide 22 mmol/L (22-30); Chloride 106 mmol/L (96-108); Globulin 3.4 gm/dL (2.2-3.7); Glomerular Filtration Rate 43; Glucose 109 mg/dL (70-105); Lactate Dehydrogenase 224 U/L (94-250); Phosphorous 3.5 mg/dL (2.7-4.5); Triglycerides 86 mg/dl (<150); Uric Acid 6.8 mg/dL (2.5-8.0)
[2020-04-11 08:29] LABS: Anisocytosis 1+ (NONE SEEN); Eosinophils % (Manual) 3 % (0-7); Lymphocytes % 15 % (15-49); Macrocytosis 1+ (NONE SEEN); Monocytes % (Manual) 3 % (1-12); Platelet Estimate MK DECR (NORMAL); RBC Morphology ABNORM (NORMAL); Segmented Neutrophils % 79 % (38-78)
[2020-04-11] MEDS ORDERED: 0.9 % SODIUM CHLORIDE 1,000 ML IV SCH (08:30)
[2020-04-11] MEDS ORDERED: LIDOCAINE VISCOUS 2% 1 ML SOLUTION PO PRN (08:45)
--- NOTE | 2020-04-11 10:12 | Ultrasound Report ---
History: Acute renal failure FINDINGS: The right kidney measures 4.8 x 5.3 x 10.1 cm and the left measures 4.5 x 4.7 x 10.6 cm. Doppler shows symmetric blood flow to both kidneys. There is no evidence of a mass, cyst, calculus or hydronephrosis in either kidney. The renal cortex may be slightly echogenic bilaterally. There is no evidence of cortical atrophy or scar. Doppler shows flow of urine through the right ureter into the bladder but no urine flow is demonstrated on the left side, while scanning the bladder for five minutes. The bladder has a smooth contour with no intraluminal filling defects. It contained 215 cc of urine. The prostate has an estimated volume of 69 cc. IMPRESSION: Anatomically normal kidneys Diminished urine output, especially on the left side Interpreted and Authenticated by: Marco A Gorman 04/11/20
[2020-04-11] MEDS: BISOPROLOL 5 MG TABLET PO SCH (10:20)
[2020-04-11] MEDS: FOLIC ACID 1 MG TABLET PO SCH (10:30)
[2020-04-11] MEDS: OMEPRAZOLE 20 MG CAPSULE PO SCH (10:31)
--- NOTE | 2020-04-11 13:29 | Nephrology Progress Note ---
SUBJECTIVE Subjective Patient information: Note initiated : 04/11/20 at 1:25 pm Service Date, if different from initiated Date: [] Patient: Darren Neal 79 y/o M admitted on 04/10/20 for Bleeding From Mouth. Chief Complaint: [Bleeding in mouth and weakness] I was asked to see patient for acute renal failure. Chronic kidney disease with a Creatinine 1.3 back in 2018. He was found to have pancytopenia which I suspicion will continue to methotrexate monitor development of some sort myelodysplastic disorder and has been started on pulmonary replacement and received 2 units of packed red blood cells as his hemoglobin was disproportionately reduced relative to his mild neutropenia and mild thrombocytopenia his MCV was about 104 consistent with folate and B12 deficiency or blockade effect. Next creatinine was elevated in the setting of lisinopril and hydrochlorothiazide as well as decreased oral intake and is improving with discontinuation of his lisinopril and thiazide as well as volume repletion crystalloid and packed red blood cells. Laboratory Tests 04/10/20 04/10/20 04/10/20 09:16 17:47 17:47 WBC Hgb Hct MCV Plt Count Absolute Retic 0.01 L Percent Retic 0.50 Sodium Potassium Chloride Carbon Dioxide BUN Creatinine 2.7 H GFR Calculation Glucose Uric Acid Calcium Phosphorus Magnesium Iron 73 TIBC 170 L Unsat Iron Binding 97 L Transferrin % Sat 42 Alkaline Phosphatase Lactate Dehydrogenase 212 Albumin Albumin/Globulin Ratio PEP Interpretation Urine pH Ur Specific [place] Urine Eosinophils U [place] Prot/Creat Ratio 04/10/20 04/10/20 04/10/20 20:18 20:18 20:18 WBC Hgb Hct MCV Plt Count Absolute Retic Percent Retic Sodium Potassium Chloride Carbon Dioxide BUN Creatinine GFR Calculation Glucose Uric Acid Calcium Phosphorus Magnesium Iron TIBC Unsat Iron Binding Transferrin % Sat Alkaline Phosphatase Lactate Dehydrogenase Albumin Albumin/Globulin Ratio PEP Interpretation Urine pH 6.0 Ur Specific [place] 1.016 Urine Eosinophils TNP U [place] Prot/Creat Ratio 0.21 H 04/11/20 04/11/20 04/11/20 05:32 05:32 05:32 WBC 2.1 L Hgb 9.2 L Hct 27.1 L MCV 101.9 H Plt Count 69 L Absolute Retic Percent Retic Sodium 140 Potassium 4.4 Chloride 106 Carbon Dioxide 22 BUN 63 H Creatinine 1.5 H GFR Calculation 43 Glucose 109 H Uric Acid 6.8 Calcium 8.5 L Phosphorus 3.5 Magnesium 1.9 Iron TIBC Unsat Iron Binding Transferrin % Sat Alkaline Phosphatase 94 Lactate Dehydrogenase 224 Albumin 2.8 L Albumin/Globulin Ratio 0.8 L PEP Interpretation Pending Urine pH Ur Specific [place] Urine Eosinophils U [place] Prot/Creat Ratio Constitutional Vitals: Vital Signs Temp Pulse Resp BP Pulse Ox 36.9 C 92 H 20 112/68 97 04/11/20 07:00 04/11/20 08:00 04/11/20 08:00 04/11/20 07:00 04/11/20 08:00 Period Temp Pulse Resp BP Sys/Gomez Pulse Ox Last 24 Hr 36.6 C-37.9 C 71-94 14-22 103-138/53-78 93-100 Intake and Output 04/10/20 04/11/20 04/11/20 21:59 05:59 13:59 Intake Total 325 575 200 Output Total 450 Balance 325 125 200 Weight 73.618 kg General: Alert and oriented x3 and appears his stated age nontoxic HEENT: Anicteric sclera, extraocular muscles are intact, PERRL Neck: Supple with no elevated JVD no carotid bruits Chest: Clear to percussion auscultation Cardiac: Normal S1 and S2 without S3 2/6 systolic ejection murmur Abdomen: Soft normal active bowel sounds Extremities; no cyanosis clubbing or edema Neuro: Alert and oriented x3, cranial nerves II through XII intact, no focal abnormalities noted Skin: Scattered ecchymoses no petechiae no rashes Intake & Output: Intake & Output 04/10/20 04/11/20 04/11/20 21:59 05:59 13:59 Intake Total 325 575 200 Output Total 450 Balance 325 125 200 Weight 73.618 kg Intake: Oral 250 200 Blood Product 325 325 Output: Void Amount 450 Other: Meal Breakfast Percent of Meal Consumed 25% Feeding Ability Independent # Voids 1 A/P Narrative A/P Narrative: 1. Given the high protein/creatinine ratio, I suspect GI bleeding (high protein meal) and ACEi leading to extreme pre-renal condition. FeNa U/A Protein/Creatinine ratio (urine) Stop lisinopril Volume expand with pRBCs +/1 crystaloid Serial RFP Age directed labs base on possibility of myeloma or pauci immune GN Improvement over the past 24 hours anticipate return to prior GFR No objection to discharge from a renal point of view tomorrow I would not restart his BONNY inhibitor 2. Pancytopenia in a patient on MTX Likely poor folate intake (diet and/or lack of replacement) MCV is c/w this etiology Start replacing folate Could be myelodysplastic Will need hematology evaluation Until her appointment stop methotrexate and continue to give folate Avoid nonsteroidals only Tylenol for pain In addition to avoiding methotrexate I probably would not use thiazides Time Spent With Patient Time: Total time spent is greater than 50% in coordination of care (as documented) at patient's floor/unit and/or counseling patient:
[2020-04-12] MEDS: 0.9 % SODIUM CHLORIDE 10 ML SYRINGE IV SCH (04:24)
[2020-04-12 07:10] LABS: Hematocrit 28.4 % (40.1-51.0); Hemoglobin 9.6 g/dL (13.7-17.5); Mean Cell Volume 101.1 fL (80.0-100.0); Mean Corpuscular HGB Conc 33.8 g/dL (31.0-36.0); Mean Platelet Volume 11.8 fL (7.4-10.4); Platelet Count 54 K/mcL (140-440); RBC 2.81 M/mcL (4.63-6.08); Red Cell Distribution Width 19.5 % (11.5-14.5)
--- NOTE | 2020-04-12 07:24 | Internal Med Progress Note ---
SUBJECTIVE Subjective Patient information: Note initiated : 04/12/20 at 7:19 am Service Date, if different from initiated Date: [] Patient: Darren Neal 79 y/o M admitted on 04/10/20 for Bleeding From Mouth. Chief Complaint: [] Interval history: Mr. Neal is a 79 year old M Does the ED at the direction of his PCP after abnormal labs returned. Patient has history of remote arthritis hypertension chronic kidney disease stage III. Patient was started on methotrexate about 6 months ago. He was recently seen by his PCP and his blood pressure medications and diuretics were held as well as methotrexate and NSAIDs. Patient states about past 6 months he is not been feeling well but especially the past 3 to 4 weeks he has had poor appetite and poor sleep. Says he does have some problem with his dentures rubbing against his gums and did cause some bleeding lately, he says the first time this happened was about a year ago. His says he does not drink enough fluid and she has been trying encourage him all summer to drink more fluid. He states he urinates okay. He denies any fevers chills chest pain abdominal pain. Does have occasional diarrhea which is normal for him. He denies dysphagia. In the ED he is shown to be pancytopenic as well as have an acute on chronic kidney injury. He also has some out patient laboratory done recently which showed a normal TSH and T4 as well as a normal B12 and folate level. TIBC was low and ferritin was high. Case was also cussed with Dr. Bowling, neurologist. And case was also discussed with Dr. Aguilar, manager roofing, who felt likely culprit was methotrexate. He was Hemoccult negative in the ED and does not report any GI bleeding. 04/11 For sleep but otherwise no new complaints. No overnight events. Received several units of blood yesterday with good response. White blood cell count s lightly improved. Platelets mildly decreased. Red blood cells slightly increased. Creatinine decreased. 04/12 Slept better last night. No new complaints other than wanting to go home. Hemoglobin stable, platelets dropped a little bit. Creatinine now within normal limits. possible discharge today. Review of Systems: denies headache/fever/chills/nausea/vomiting/chest or abdominal pain/cough/ dyspnea/diarrhea. Otherwise see above. Constitutional Vitals: Vital Signs Temp Pulse Resp BP Pulse Ox 98.1 F 88 22 140/72 97 04/12/20 04:28 04/12/20 04:28 04/12/20 04:28 04/12/20 04:28 04/12/20 04:28 Period Temp Pulse Resp BP Sys/Gomez Pulse Ox Last 24 Hr 97.7 F-98.6 F 75-92 20-24 115-140/62-72 91-98 Intake and Output 04/11/20 04/12/20 04/12/20 21:59 05:59 13:59 Intake Total 50 Output Total 375 Balance -375 50 Weight 75.795 kg Intake & Output: Intake & Output 04/11/20 04/12/20 04/12/20 21:59 05:59 13:59 Intake Total 50 Output Total 375 Balance -375 50 Weight 75.795 kg Intake: Oral 50 Output: Void Amount 375 Other: Urine Appearance Clear Urine Color Dark Yellow Urine Odor Normal Exam: General: Alert, Awake, No acute Distress Eyes/N/T: EOMI, Head/Neck: neck supple, CV: RRR, No murmurs, Pulm: Clear b/l, no wheezing/rhonchi/rales Abd: soft, nontender, +BS x4 Ext: no clubbing/cyanosis/edema Neuro: Alert, no focal deficits, moves all extremities, Skin: warm/dry OBJ DATA Labs CBC & Chem 7: 04/12/20 05:20 04/12/20 05:20 Labs: Abnormal Lab Results 04/12/20 04/11/20 04/11/20 05:20 05:32 05:32 WBC 2.0 L RBC 2.81 L Hgb 9.6 L Hct 28.4 L MCV 101.1 H MCH 34.2 H RDW 19.5 H Plt Count 54 L MPV 11.8 H Gran % Lymph % (Auto) Ashe % (Auto) Gran # Lymph # (Auto) Ashe # (Auto) Seg Neutrophils % Platelet Estimate RBC Morphology Anisocytosis Macrocytosis Absolute Retic Percent Retic APTT Carbon Dioxide Anion Gap BUN 63 H Creatinine 1.5 H Glucose 109 H Uric Acid Calcium 8.5 L TIBC Unsat Iron Binding Total Bilirubin 2.4 H Direct Bilirubin 0.6 H AST 81 H ALT 71 H Total Protein (PEP) 5.8 L Albumin 2.8 L Albumin/Globulin Ratio 0.8 L Urine Glucose (UA) U [place] Prot/Creat Ratio 04/11/20 04/10/20 04/10/20 05:32 20:18 20:18 WBC 2.1 L RBC 2.66 L Hgb 9.2 L Hct 27.1 L MCV 101.9 H MCH 34.6 H RDW 20.6 H Plt Count 69 L MPV 11.3 H Gran % Lymph % (Auto) Ashe % (Auto) Gran # Lymph # (Auto) [place]he # (Auto) Seg Neutrophils % 79 H Platelet Estimate Mk decr A RBC Morphology Abnorm A Anisocytosis 1+ A Macrocytosis 1+ A Absolute Retic Percent Retic APTT Carbon Dioxide Anion Gap BUN Creatinine Glucose Uric Acid Calcium TIBC Unsat Iron Binding Total Bilirubin Direct Bilirubin AST ALT Total Protein (PEP) Albumin Albumin/Globulin Ratio Urine Glucose (UA) 50 A U [place] Prot/Creat Ratio 0.21 H 04/10/20 04/10/20 04/10/20 17:47 17:47 12:25 WBC RBC Hgb Hct MCV MCH RDW Plt Count MPV Gran % Lymph % (Auto) Ashe % (Auto) Gran # Lymph # (Auto) [place] # (Auto) Seg Neutrophils % Platelet Estimate Decreased A RBC Morphology Abnorm A Anisocytosis 2+ A Macrocytosis 1+ A Absolute Retic 0.01 L 0.01 L Percent Retic 0.36 L APTT Carbon Dioxide Anion Gap BUN Creatinine Glucose Uric Acid Calcium TIBC 170 L Unsat Iron Binding 97 L Total Bilirubin Direct Bilirubin AST ALT Total Protein (PEP) Albumin Albumin/Globulin Ratio Urine Glucose (UA) U [place] Prot/Creat Ratio 04/10/20 04/10/20 04/10/20 12:25 09:16 09:16 WBC 1.9 L RBC 2.04 L Hgb 7.2 L Hct 21.6 L MCV 105.9 H MCH 35.3 H RDW 20.4 H Plt Count 81 L MPV 11.1 H Gran % 82.8 H Lymph % (Auto) 14.1 L [place]he % (Auto) 0.5 L Gran # 1.58 L Lymph # (Auto) 0.27 L Ashe # (Auto) 0.01 L Seg Neutrophils % Platelet Estimate RBC Morphology Anisocytosis Macrocytosis Absolute Retic Percent Retic APTT 38 H Carbon Dioxide Anion Gap BUN Creatinine Glucose Uric Acid 10.5 H Calcium TIBC Unsat Iron Binding Total Bilirubin Direct Bilirubin AST ALT Total Protein (PEP) Albumin Albumin/Globulin Ratio Urine Glucose (UA) U [place] Prot/Creat Ratio 04/10/20 04/10/20 09:16 09:16 WBC 3.6 L RBC 2.54 L Hgb 8.9 L Hct 26.8 L MCV 105.5 H MCH 35.0 H RDW 20.4 H Plt Count 117 L MPV 11.4 H Gran % Lymph % (Auto) Ashe % (Auto) 0.6 L Gran # Lymph # (Auto) 0.88 L [place]he # (Auto) 0.02 L Seg Neutrophils % Platelet Estimate RBC Morphology Anisocytosis Macrocytosis Absolute Retic Percent Retic APTT Carbon Dioxide 20 L Anion Gap 19.0 H BUN 94 H Creatinine 2.7 H Glucose 137 H Uric Acid Calcium TIBC Unsat Iron Binding Total Bilirubin Direct Bilirubin AST ALT Total Protein (PEP) Albumin Albumin/Globulin Ratio 0.9 L Urine Glucose (UA) U [place] Prot/Creat Ratio Meds: Medications Acetaminophen (Tylenol) 650 mg PO Q6HP PRN PRN Reason: PAIN/FEVER > 101 Last Admin: 04/10/20 23:54 Dose: 650 mg Documented by: Albuterol/Ipratropium (Duoneb) 3 ml NEB Q4HP PRN PRN Reason: Shortness Of Breath Bisoprolol Fumarate (Zebeta) 2.5 mg PO DAILY [facility] Last Admin: 04/11/20 10:20 Dose: 2.5 mg Documented by: Folic Acid (Folic Acid) 4 mg PO DAILY [facility] Last Admin: 04/11/20 10:30 Dose: 4 mg Documented by: Potassium Chloride 40 meq/ (Dextrose) 520 mls @ 130 mls/hr IV UD PRN PRN Reason: Potassium < 3 Magnesium Sulfate (Magnesium Sulfate) 2 gm in 50 mls @ 50 mls/hr IV UD PRN PRN Reason: Magnesium </= 1.6 Lidocaine HCl (Lidocaine Viscous 2%) 10 ml PO Q6HP PRN PRN Reason: oral pain Omeprazole (Prilosec) 20 mg PO DAILY [facility] Last Admin: 04/11/20 10:31 Dose: 20 mg Documented by: Ondansetron HCl (Zofran) 4 mg IV Q4HP PRN PRN Reason: Nausea And Vomiting Polyethylene Glycol (Miralax) 17 gm PO DAILYP PRN PRN Reason: Constipation Potassium Chloride (Kdur) 40 meq PO UD PRN PRN Reason: Potssium is 3-3.5 Potassium Chloride (Kdur) 40 meq PO UD PRN PRN Reason: Potassium < 3 Sodium Chloride (Saline Flush) 10 ml IV Q8 [facility] Last Admin: 04/12/20 04:24 Dose: 10 ml Documented by: A/P Narrative A/P Narrative: A: *YURIY on CKD III: 2/2 poor oral intake/NSAIDs/BONNY inhibitor/HCTZ - Renal ultrasound unremarkable -resolved *pancytopenia: Likely 2/2 methotrexate -Macrocytic anemia with normal B12 and folate, 2/2 methotrexate, s/p 2PRBC (04/10) -Thrombocytopenia 81>61>51 -Mild neutropenia -No blasts or immature cells on the peripheral smear *Rheumatoid Arthritis: Started on the methotrexate 6 months ago, now DC'd *HTN: Blood pressure medications recently stopped outpatient given decreased blood pressure readings *HLD: On statin *Generalized weakness: *Oral abrasions/dermatitis from Dentures and possibly MTX: *GERD: home ppi P: - -Nephro following -monitor UOP -cont home BB -d/c'd NSAIDS/ACEI/MTX/HCTZ recently outpt -Follow-up with PCP/cafeteria clerk for alternative rheumatologic's -pt/ot -ppx: SCD, chemical held for Low PLT's DNR Time Spent With Patient Time: Total time spent is greater than 50% in coordination of care (as documented) at patient's floor/unit and/or counseling patient: QUALITY VTE Deep Vein Thrombosis/Pulmonary Embolism Present on Admission: No
[2020-04-12 07:51] LABS: ALT/SGPT 64 U/l (0-40); AST/SGOT 48 U/l (0-37); Albumin 2.9 gm/dL (3.2-5.2); Albumin/Globulin Ratio 0.9 (1.0-2.3); Alkaline Phosphatase 96 U/L (39-117); Bilirubin,Direct 0.5 mg/dL (0.0-0.3); Bilirubin,Total 1.5 mg/dL (0.0-1.0); Blood Urea Nitrogen 39 mg/dl (8-23); Calcium 8.4 mg/dl (8.6-10.4); Carbon Dioxide 25 mmol/L (22-30); Chloride 104 mmol/L (96-108); Globulin 3.4 gm/dL (2.2-3.7); Glomerular Filtration Rate 63; Glucose 110 mg/dL (70-105); Lactate Dehydrogenase 187 U/L (94-250); Phosphorous 2.8 mg/dL (2.7-4.5); Triglycerides 91 mg/dl (<150); Uric Acid 4.6 mg/dL (2.5-8.0)
[2020-04-12 08:46] LABS: Anisocytosis 1+ (NONE SEEN); Basophils % (Manual) 2 % (0-2); Eosinophils % (Manual) 7 % (0-7); Lymphocytes % 21 % (15-49); Macrocytosis 2+ (NONE SEEN); Monocytes % (Manual) 2 % (1-12); Platelet Estimate MK DECR (NORMAL); RBC Morphology ABNORM (NORMAL); Segmented Neutrophils % 68 % (38-78)
--- NOTE | 2020-04-12 09:01 | Discharge Summary ---
Discharge Provider Provider Patient information: Note initiated : 04/12/20 at 9:00 am Service Date, if different from initiated Date: [] Patient: Darren Neal 79 y/o M admitted on 04/10/20 for Bleeding From Mouth. Chief Complaint: [] Date of admission: 04/10/20 16:35 Discharge date: 04/12/20 Primary care physician: Saturnino Dugan Consults: 04/10/20 14:18 Consult to Physician [CONS] Stat Comment: Consulting Provider: Lew Ornelas Reason For Exam: Physician to Consult 04/10/20 16:49 Consult to Physician [CONS] Stat Comment: Consulting Provider: Tacos Bowling Reason For Exam: Physician to Consult Discharge Meds Discharge Medications Home Medications omeprazole 20 mg PO DAILY 04/10/20 [History Confirmed 04/10/20 Last Taken 04/09/20] bisoprolol fumarate 5 mg PO DAILY #30 tab 04/12/20 [Rx Last Taken Unknown] COURSE Hospital Course Hospital course: Mr. Neal is a 79 year old M Does the ED at the direction of his PCP after abnormal labs returned. Patient has history of remote arthritis hypertension chronic kidney disease stage III. Patient was started on methotrexate about 6 months ago. He was recently seen by his PCP and his blood pressure medications and diuretics were held as well as methotrexate and NSAIDs. Patient states about past 6 months he is not been feeling well but especially the past 3 to 4 weeks he has had poor appetite and poor sleep. Says he does have some problem with his dentures rubbing against his gums and did cause some bleeding lately, he says the first time this happened was about a year ago. His says he does not drink enough fluid and she has been trying encourage him all summer to drink more fluid. He states he urinates okay. He denies any fevers chills chest pain abdominal pain. Does have occasional diarrhea which is normal for him. He denies dysphagia. In the ED he is shown to be pancytopenic as well as have an acute on chronic kidney injury. He also has some out patient laboratory done recently which showed a normal TSH and T4 as well as a normal B12 and folate level. TIBC was low and ferritin was high. Case was also cussed with Dr. Bowling, neurologist. And case was also discussed with Dr. Aguilar, 6th grade teacher, who felt likely culprit was methotrexate. He was Hemoccult negative in the ED and does not report any GI bleeding. 04/11 For sleep but otherwise no new complaints. No overnight events. Received several units of blood yesterday with good response. White blood cell count slightly improved. Platelets mildly decreased. Red blood cells slightly increased. Creatinine decreased. 04/12 Slept better last night. No new complaints other than wanting to go home. Hemoglobin stable, platelets dropped a little bit. Creatinine now within normal limits. Stable for discharge. A: *YURIY on CKD III: 2/2 poor oral intake/NSAIDs/BONNY inhibitor/HCTZ - Renal ultrasound unremarkable -resolved *pancytopenia: Likely 2/2 methotrexate -Macrocytic anemia with normal B12 and folate, 2/2 methotrexate, s/p 2PRBC (04/10) -Thrombocytopenia 81>61>51 -Mild neutropenia -No blasts or immature cells on the peripheral smear *Rheumatoid Arthritis: Started on the methotrexate 6 months ago, now DC'd *HTN: Blood pressure medications recently stopped outpatient given decreased blood pressure readings *HLD: On statin *Generalized weakness: *Oral abrasions/dermatitis from Dentures and possibly MTX: *GERD: home ppi Discharge diagnosis: 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81 L Hgb 9.6 L Hct 28.4 L MCV 101.1 H MCH 34.2 H MCHC 33.8 RDW 19.5 H Plt Count 54 L MPV 11.8 H Total Counted 100 Seg Neutrophils % 68 Band Neutrophils % Not Reportable Lymphocytes % 21 Monocytes % (Manual) 2 Eosinophils % (Manual) 7 Basophils % (Manual) 2 Platelet Estimate Mk decr A RBC Morphology Abnorm A Anisocytosis 1+ A Macrocytosis 2+ A Sodium 140 Potassium 4.1 Chloride 104 Carbon Dioxide 25 Anion Gap 11.0 BUN 39 H Creatinine 1.1 GFR Calculation 63 Glucose 110 H Uric Acid 4.6 Calcium 8.4 L Phosphorus 2.8 Magnesium 1.7 Total Bilirubin 1.5 H Direct Bilirubin 0.5 H GGT 52 AST 48 H ALT 64 H Alkaline Phosphatase 96 Lactate Dehydrogenase 187 Total Protein 6.3 Albumin 2.9 L Globulin 3.4 Albumin/Globulin Ratio 0.9 L Triglycerides 91 Preliminary micro results at discharge 04/10/20 11:31 Blood Culture - Preliminary Blood 04/10/20 09:16 Blood Culture - Preliminary Blood Discharge Plan Patient/Caregiver Discharge Instructions Activity: increase activity as tolerated Diet: Regular Diet Instructions: Bisoprolol (By mouth), Acute Kidney Injury (DC), Pancytopenia (DC) Prescriptions: New bisoprolol fumarate 5 mg Tablet 5 mg PO DAILY Qty: 30 RF: 0 Continued omeprazole 20 mg capsule,delayed release(DR/EC) 20 mg PO DAILY RF: 0 Discontinued lisinopril 20 mg tablet 20 mg PO DAILY RF: 0 bisoprolol-hydrochlorothiazide 5-6.25 mg tablet 5 - 6.25 tab PO DAILY RF: 0 simvastatin 40 mg tablet 40 mg PO DAILY RF: 0 methotrexate sodium 2.5 mg tablet 7.5 mg PO WEEKLY RF: 0 Follow Up Plan Follow up with: Saturnino Dugan MD [Primary Care Provider] - 04/17/20 10:00 am Patient Disposition: Home Health Service Rehab Potential: Fair Overall status at discharge: patient is progressing back to baseline Discharge Orders: Discharge Order (Routine); Ordered 04/12/20 Ordered By: Lew Ornelas [facility] VTE Deep Vein Thrombosis/Pulmonary Embolism Present on Admission: No
[2020-04-12] MEDS: FOLIC ACID 1 MG TABLET PO SCH (09:10)
[2020-04-12] MEDS: OMEPRAZOLE 20 MG CAPSULE PO SCH (09:10)
[2020-04-12] MEDS: BISOPROLOL 5 MG TABLET PO SCH (09:13)
[2020-04-12 15:10] LABS: Albumin PEP 2.49 gm/dl (3.1-4.7); Albumin/Globulin Ratio PEP 0.8 (0.9-1.7); Alpha-1-Globulins 0.44 gm/dl (0.1-0.5); Alpha-2-Globulins 1.11 gm/dL (0.4-1.2); Beta Globulins 0.85 gm/dL (0.6-1.2); Gamma Globulins 0.91 gm/dL (0.5-1.7); Globulin PEP 3.3 gm/dl (2.4-3.6)
== END 2020-04-12 11:30 | disposition home health service (06) | DRG 683 ==
LOC: ED 09:07 → MEDSUR 16:35
PROVIDERS: ADMIT Internal Medicine; ATTEND Internal Medicine